=== PATIENT | male | born 1945 | race Caucasian/White ===

== ENCOUNTER 2019-12-13 09:35 | Observation (INO) ==
[2019-12-13] MEDS ORDERED: 0.9 % Sodium Chloride 500 ML IVC ONE (09:45)
[2019-12-13] MEDS ORDERED: Morphine Sulfate 2 MG/ML SYRINGE IVP ONE (09:45)
[2019-12-13] MEDS ORDERED: Ondansetron 4 MG/2 ML VIAL IVP ONE ×3 (09:45→19:41)
[2019-12-13 10:15] LABS: Basophils % 0.4 %; Eosinophils # 0.2 K/mcL (0.0-0.6); Eosinophils % 1.8 %; Hematocrit 38.6 % (37.5-50.1); Immature Granulocytes % 0.3 % (0-4); Lymphocytes # 0.8 K/mcL (0.6-4.6); Lymphocytes % 9.1 %; Mean Corpuscular HGB Conc 33.7 g/dL (31.6-35.5); Mean Corpuscular Hemoglobin 31.6 pg (28.0-33.3); Mean Corpuscular Volume 93.7 fL (83.0-100.0); Platelet Count 152 K/mcL (140-400); Red Blood Count 4.12 M/mcL (4.19-5.50); Red Cell Distribution Width 12.2 % (11.5-14.5); Segmented Neutrophils % 77.4 %; White Blood Count 9.1 K/mcL (4.3-11.1)
[2019-12-13] MEDS ORDERED: Isovue-370 500 ML BOTTLE IVP ONE (10:19)
[2019-12-13 10:29] LABS: INR 1.1; Prothrombin Time 12.7 Seconds (9.4-12.1)
[2019-12-13 10:32] LABS: Activated Partial Thrombo Time 30.7 Seconds (26.0-36.0)
[2019-12-13 10:41] LABS: Alanine Aminotransferase 131 Units/L (7-52); Albumin 3.9 g/dL (3.5-5.7); Albumin/Globulin Ratio 1.3 (1.1-2.2); Alkaline Phosphatase 143 Units/L (34-104); Aspartate Amino Transferase 29 Units/L (13-39); BUN/Creatinine Ratio 17 (6-26); Bilirubin,Direct 0.2 mg/dL (0.0-0.2); Bilirubin,Indirect 0.6 mg/dL (0.0-1.0); Bilirubin,Total 0.8 mg/dL (0.3-1.0); Blood Urea Nitrogen 15 mg/dL (8-23); Calcium 9.5 mg/dL (8.6-10.3); Carbon Dioxide 25 mEq/L (23-29); Chloride 101 mEq/L (98-107); Glucose 145 mg/dL (70-105); Lipase 39 Units/L (11-82); Osmolality,Calculated 291 (280-300); Potassium 3.6 mEq/L (3.5-5.1); Sodium 139 mEq/L (136-145); Total Protein 6.9 g/dL (6.4-8.9); Troponin I < 0.03 ng/mL (< 0.04); eGFR For African Americans > 60 (> 60); eGFR For Non-African Americans > 60 (> 60)
[2019-12-13] MEDS ORDERED: 0.9 % Sodium Chloride 1,000 ML IVC ONE (13:33)
[2019-12-13] MEDS ORDERED: *HR* OxyCODONE/APAP 5/325 TABLET PO PRN (14:31)
[2019-12-13] MEDS ORDERED: 0.9 % Sodium Chloride 1,000 ML IVC SCH ×2 (14:31→19:41)
[2019-12-13] MEDS ORDERED: Ondansetron 4 MG/2 ML VIAL IVP PRN ×2 (14:31→19:41)
[2019-12-13] MEDS ORDERED: cefOXitin 2,000 MG in Water for inj. (sterile) 20 ML IVP SCH (16:00)
[2019-12-13] MEDS ORDERED: *HR* FentaNYL (PF) 100 MCG/2 ML VIAL ONE (17:24)
[2019-12-13] MEDS ORDERED: *HR* Propofol 200 MG/20 ML VIAL IVP ONE (17:24)
[2019-12-13] MEDS ORDERED: Lidocaine -MPF 2% 2 ML VIAL ONE (17:25)
[2019-12-13] MEDS ORDERED: *HR* Rocuronium Bromide 50 MG/5 ML VIAL ONE (17:25)
[2019-12-13] MEDS ORDERED: Acetaminophen IV 1,000 MG/100 ML INFUS..BTL ONE (17:31)
[2019-12-13] MEDS ORDERED: Famotidine 20 MG/2 ML VIAL ONE (17:31)
[2019-12-13] MEDS ORDERED: CefOXitin 1,000 MG VIAL ONE (17:37)
[2019-12-13] MEDS ORDERED: Isovue-300 50ML VIAL ONE (17:37)
[2019-12-13] MEDS ORDERED: Dexamethasone 4 MG/ML VIAL ONE (18:18)
[2019-12-13] MEDS ORDERED: Ondansetron 4 MG/2 ML VIAL ONE (18:18)
[2019-12-13] MEDS ORDERED: *HR* OxyCODONE Immed Rel 5 MG TABLET PO PRN ×2 (18:40→19:41)
[2019-12-13] MEDS ORDERED: *HR* HYDROmorphone (PF) 1 MG/ML SYRINGE IVP PRN ×2 (18:40→19:41)
[2019-12-13] MEDS ORDERED: *HR* Promethazine 25 MG/ML VIAL IVP PRN ×2 (18:40→19:41)
[2019-12-13] MEDS ORDERED: *HR* PHENYLEPHRINE 1,000 MCG/10 ML SYRINGE IVP ONE (18:43)
[2019-12-13] MEDS ORDERED: Neostigmine Methylsulfate 3 MG/3 ML SYRINGE ONE (18:47)
[2019-12-13] MEDS: Gabapentin 300 MG CAPSULE PO SCH (20:48)
[2019-12-13] MEDS: *HR* OxyCODONE/APAP 5/325 TABLET PO PRN (20:48)
[2019-12-13] MEDS: cefOXitin 2,000 MG in Water for inj. (sterile) 20 ML IVP SCH (23:47)
[2019-12-14] MEDS ORDERED: *HR* Heparin 5,000 UNIT/ML VIAL SQ SCH (06:00)
[2019-12-14] MEDS: cefOXitin 2,000 MG in Water for inj. (sterile) 20 ML IVP SCH (07:31)
[2019-12-14] MEDS: Gabapentin 300 MG CAPSULE PO SCH (07:33)
[2019-12-14] MEDS ORDERED: Losartan/HCTZ 50-12.5 TABLET PO SCH (09:00)
[2019-12-14] MEDS ORDERED: Aspirin Enteric Coated 81 MG Tablet PO SCH (09:00)
[2019-12-14 10:59] VITALS: BP 105/67
[2019-12-14] MEDS: *HR* OxyCODONE/APAP 5/325 TABLET PO PRN (11:25)
== END 2019-12-14 13:15 | disposition home or self-care (01) ==
LOC: 3ANU 09:35 → EMEROOARM 09:35 → 3ANU 14:25
PROVIDERS: ADMIT Internal Medicine; ATTEND Surgery